=== PATIENT | female | born 1995 | race African-American/Black ===

== ENCOUNTER 2022-01-29 03:35 | Inpatient (IN) ==
[2022-01-29] MEDS ORDERED: LACTATED RINGERS 500 ML IV ONE (03:59)
[2022-01-29 04:20] LABS: Urine Appearance Clear (Clear); Urine Color Yellow (Yellow)
[2022-01-29 04:21] LABS: Bilirubin,Urine Negative (Negative); Blood, Urine Negative (Negative); Glucose,Urine (UA) Negative (Negative); Ketones,Urine Negative (Negative); Nitrite,Urine Negative (Negative); Protein,Urine Negative (Negative); Urine Specific Gravity 1.015 (1.001-1.035)
[2022-01-29 04:24] LABS: Mucus,Urine Occasional /LPF (Occasional); RBC,Urine 1 /HPF (0-4); Squamous Epithelial Cell,Urine Occasional /HPF (0-10)
[2022-01-29] MEDS ORDERED: ceFAZolin 2,000 MG/50 ML DUPLEX IV ONE (04:26)
[2022-01-29] MEDS ORDERED: TRANEXAMIC ACID 1,000 MG in SODIUM CHLORIDE 0.9% 100 ML IV PRN (04:26)
[2022-01-29] MEDS ORDERED: FAMOTIDINE 20 MG/2 ML VIAL IV ONE (04:26)
[2022-01-29] MEDS ORDERED: CARBOPROST TROMETHAMINE 250 MCG/ML AMP IM PRN (04:26)
[2022-01-29] MEDS ORDERED: miSOPROStoL 200 MCG TABLET RECTAL PRN (04:26)
[2022-01-29] MEDS ORDERED: METHYLERGONOVINE 0.2 MG/1 ML AMP IM PRN (04:26)
[2022-01-29] MEDS ORDERED: OXYTOCIN/LR 20 UNIT/1,000 ML BAG IV PRN (04:26)
[2022-01-29] MEDS ORDERED: CITRIC ACID/SODIUM CITRATE 30 ML UDCUP PO ONE (04:26)
[2022-01-29 04:40] LABS: Basophils # 0.1 10*3/uL (0.0-0.2); Basophils % 0.3 % (0.0-0.8); Eosinophils # 0.2 10*3/uL (0.0-0.87); Eosinophils % 1.7 % (0.00-10.9); Hematocrit 30.7 VOL% (35.7-47.0); Hemoglobin 9.2 GM/DL (12.0-16.0); Immature Granulocytes % 2.3 %; Immature Granulocytes Absolute 0.34 #; Lymphocytes # 2.2 10*3/uL (1.4-4.0); Lymphocytes % 14.8 % (21.3-54.2); Mean Corpuscular Volume 83.9 FL (87-102); Mean Platelet Volume 10.1 FL (9.6-12.0); Monocytes % 7.1 % (1.7-12.7); NRBC # 0.02 10*3/uL; Neutrophils % 73.8 % (38.7-73.9); Platelet Count 256 T/CUMM (130-400); Red Blood Count 3.66 MC/CUMM (3.8-5.5); Red Cell Distribution Width 14.9 % (9.3-17.3); White Blood Count 14.5 T/CUMM (4-12)
[2022-01-29 04:41] LABS: Barbiturates Screen,Urine Negative (Negative); Benzodiazepines Screen,Urine Negative (Negative); Cannabinoid Screen,Urine Negative (Negative); Opiate Screen,Urine Negative (Negative); Phencyclidine Screen,Urine Negative (Negative)
[2022-01-29] MEDS ORDERED: ONDANSETRON 4 MG/2 ML VIAL ONE (04:56)
[2022-01-29] MEDS ORDERED: DEXAMETHASONE 4 MG/1 ML VIAL ONE (04:56)
[2022-01-29] MEDS ORDERED: KETOROLAC 30 MG/1 ML VIAL ONE (04:57)
[2022-01-29] MEDS ORDERED: ACETAMINOPHEN INJ 1,000 MG/100 ML VIAL IV ONE (04:57)
[2022-01-29] MEDS ORDERED: buprenorphine HCL 0.3 MG/ML VIAL ONE (04:57)
[2022-01-29] MEDS ORDERED: OXYTOCIN/LR 20 UNIT/1,000 ML BAG IV ONE ×2 (05:00→06:22)
[2022-01-29] MEDS ORDERED: TRANEXAMIC ACID 1,000 MG/10 ML VIAL ONE (05:00)
[2022-01-29] MEDS ORDERED: METHYLERGONOVINE 0.2 MG/1 ML AMP ONE (05:00)
[2022-01-29] MEDS ORDERED: miSOPROStoL 200 MCG TABLET ONE (05:00)
[2022-01-29] MEDS ORDERED: CARBOPROST TROMETHAMINE 250 MCG/ML AMP IM ONE (05:00)
[2022-01-29] MEDS ORDERED: SODIUM CHLORIDE 0.9% 0 ML IV ONE (05:00)
[2022-01-29 05:08] LABS: Albumin 2.9 G/DL (3.4-5.0); Bilirubin,Total 0.9 MG/DL (0.20-1.00); Calcium 8.7 MG/DL (8.5-10.1); Osmolality,Calculated 273.5 MOS/KG (273-304); Potassium 3.8 MMOL/L (3.5-5.1); Total Protein 6.7 G/DL (6.4-8.2)
[2022-01-29 05:17] LABS: Rubella Antibody IgG Result Reactive (NonReactive)
[2022-01-29] MEDS ORDERED: PHENYLEPHRINE 1 MG/10 ML SYRINGE IV ONE (05:21)
[2022-01-29] MEDS ORDERED: ePHEDrine 50 MG/ML VIAL ONE (05:24)
[2022-01-29 05:36] LABS: HIV Antigen/Antibody Result Nonreactive (Nonreactive); Hepatitis B Surface Ag Quant < 0.10 Index; Hepatitis B Surface Ag Result Non-Reactive (NonReactive)
[2022-01-29 06:12] LABS: Bacteria,Urine Occasional /HPF (Few); Bilirubin,Urine Negative (Negative); Blood, Urine Negative (Negative); Glucose,Urine (UA) Negative (Negative); Ketones,Urine Negative (Negative); Nitrite,Urine Negative (Negative); Protein,Urine Negative (Negative); RBC,Urine <1 /HPF (0-4); Squamous Epithelial Cell,Urine Occasional /HPF (0-10); Urine Appearance Clear (Clear); Urine Color Yellow (Yellow); Urine Specific Gravity 1.015 (1.001-1.035)
[2022-01-29 06:19] LABS: Cord Venous Blood HCO3 22.1 MMOL/L; Cord Venous Blood PCO2 34.9 MMHG; Cord Venous Blood PO2 32.4
[2022-01-29] MEDS ORDERED: ACETAMINOPHEN 325 MG TABLET PO PRN (06:22)
[2022-01-29] MEDS ORDERED: IBUPROFEN 800 MG TABLET PO PRN (06:22)
[2022-01-29] MEDS ORDERED: ONDANSETRON 4 MG/2 ML VIAL IV PRN (06:22)
[2022-01-29] MEDS ORDERED: MAGNESIUM HYDROXIDE SUSP 30 ML UDCUP PO PRN (06:22)
[2022-01-29] MEDS ORDERED: LACTATED RINGERS 1,000 ML IV SCH (06:30)
[2022-01-29] MEDS ORDERED: RHO(D) IMMUNE GLOBULIN 300 MCG SYRINGE IM ONE (06:30)
[2022-01-29] MEDS ORDERED: ACETAMINOPHEN 500 MG TABLET PO SCH (08:30)
[2022-01-29] MEDS: MULTIVITAMIN (PRENATAL) TABLET PO SCH (11:25)
[2022-01-29] MEDS ORDERED: ACETAMINOPHEN 500 MG TABLET PO PRN (11:45)
[2022-01-29] MEDS: KETOROLAC 30 MG/1 ML VIAL IV SCH ×2 (13:38→21:15)
[2022-01-29] MEDS: DOCUSATE SODIUM 100 MG CAPSULE PO SCH ×2 (14:42→21:14)
[2022-01-29] MEDS: ACETAMINOPHEN 500 MG TABLET PO SCH ×2 (14:43→21:14)
[2022-01-29] MEDS: SIMETHICONE CHEW 80 MG TABLET PO PRN (21:14)
[2022-01-30] MEDS: ACETAMINOPHEN 500 MG TABLET PO SCH ×2 (03:49→09:53)
[2022-01-30] MEDS ORDERED: KETOROLAC 30 MG/1 ML VIAL IV SCH (04:00)
[2022-01-30 04:55] LABS: Basophils % 0.2 % (0.0-0.8); Eosinophils # 0.1 10*3/uL (0.0-0.87); Eosinophils % 0.3 % (0.00-10.9); Hematocrit 23.5 VOL% (35.7-47.0); Hemoglobin 7.1 GM/DL (12.0-16.0); Immature Granulocytes % 1.2 %; Immature Granulocytes Absolute 0.26 #; Lymphocytes # 2.6 10*3/uL (1.4-4.0); Lymphocytes % 12.2 % (21.3-54.2); Mean Corpuscular HGB Conc 30.2 GM/DL (32-36); Mean Corpuscular Volume 84.2 FL (87-102); Monocytes # 1.9 10*3/uL (0.11-0.8); Monocytes % 8.9 % (1.7-12.7); NRBC # 0.02 10*3/uL; Neutrophils % 77.2 % (38.7-73.9); Platelet Count 279 T/CUMM (130-400); Red Blood Count 2.79 MC/CUMM (3.8-5.5); White Blood Count 21.6 T/CUMM (4-12)
[2022-01-30 05:26] LABS: Band Neutrophils 1 % (0-10); Lymphocytes 6 % (20-55); Platelet Estimate Normal; Total Cells Counted 100
[2022-01-30] MEDS: MULTIVITAMIN (PRENATAL) TABLET PO SCH (09:15)
[2022-01-30] MEDS: DOCUSATE SODIUM 100 MG CAPSULE PO SCH ×2 (09:15→21:31)
[2022-01-30 11:46] LABS: Basophils % 0.2 % (0.0-0.8); Eosinophils # 0.1 10*3/uL (0.0-0.87); Eosinophils % 0.6 % (0.00-10.9); Hemoglobin 7.1 GM/DL (12.0-16.0); Immature Granulocytes % 1.3 %; Immature Granulocytes Absolute 0.22 #; Lymphocytes # 2.8 10*3/uL (1.4-4.0); Lymphocytes % 16.3 % (21.3-54.2); Mean Corpuscular HGB Conc 30.9 GM/DL (32-36); Mean Corpuscular Volume 84.2 FL (87-102); Mean Platelet Volume 9.6 FL (9.6-12.0); Monocytes # 1.2 10*3/uL (0.11-0.8); Monocytes % 7.1 % (1.7-12.7); Neutrophils % 74.5 % (38.7-73.9); Platelet Count 264 T/CUMM (130-400); Red Blood Count 2.73 MC/CUMM (3.8-5.5); Red Cell Distribution Width 15.1 % (9.3-17.3); White Blood Count 17.3 T/CUMM (4-12)
[2022-01-30] MEDS: AMOXICILLIN/CLAV 875 MG TABLET PO SCH ×2 (13:23→21:31)
[2022-01-30] MEDS: FERROUS SULFATE 325 MG TABLET PO SCH ×2 (16:06→21:31)
[2022-01-30] MEDS: ASCORBIC ACID 500 MG TABLET PO SCH ×2 (16:07→21:31)
[2022-01-30] MEDS: SIMETHICONE CHEW 80 MG TABLET PO PRN (21:31)
[2022-01-31] MEDS: ASCORBIC ACID 500 MG TABLET PO SCH ×3 (09:27→21:48)
[2022-01-31] MEDS: FERROUS SULFATE 325 MG TABLET PO SCH ×3 (09:27→21:49)
[2022-01-31] MEDS: MULTIVITAMIN (PRENATAL) TABLET PO SCH (09:27)
[2022-01-31] MEDS: AMOXICILLIN/CLAV 875 MG TABLET PO SCH ×2 (09:27→21:49)
[2022-01-31] MEDS: DOCUSATE SODIUM 100 MG CAPSULE PO SCH ×2 (09:28→21:48)
[2022-01-31] MEDS ORDERED: WITCH HAZEL PADS 100/JAR TOP PRN (10:12)
[2022-01-31] MEDS ORDERED: HYDROCORTISONE 2.5% RECTAL CREAM 30 GM TUBE TOP PRN (10:15)
[2022-01-31 11:35] LABS: Basophils % 0.2 % (0.0-0.8); Eosinophils # 0.3 10*3/uL (0.0-0.87); Eosinophils % 2.1 % (0.00-10.9); Hematocrit 24.8 VOL% (35.7-47.0); Hemoglobin 7.2 GM/DL (12.0-16.0); Immature Granulocytes % 2.6 %; Immature Granulocytes Absolute 0.38 #; Lymphocytes # 2.3 10*3/uL (1.4-4.0); Lymphocytes % 15.5 % (21.3-54.2); Mean Corpuscular Volume 86.4 FL (87-102); Mean Platelet Volume 9.1 FL (9.6-12.0); Monocytes % 6.7 % (1.7-12.7); NRBC # 0.03 10*3/uL; Neutrophils % 72.9 % (38.7-73.9); Platelet Count 249 T/CUMM (130-400); Red Blood Count 2.87 MC/CUMM (3.8-5.5); Red Cell Distribution Width 15.3 % (9.3-17.3); White Blood Count 14.6 T/CUMM (4-12)
[2022-01-31] MEDS ORDERED: IBUPROFEN 800 MG TABLET PO PRN (22:08)
[2022-02-01 07:41] VITALS: BP 126/64
[2022-02-01] MEDS: FERROUS SULFATE 325 MG TABLET PO SCH (08:58)
[2022-02-01] MEDS: AMOXICILLIN/CLAV 875 MG TABLET PO SCH (08:58)
[2022-02-01] MEDS: MULTIVITAMIN (PRENATAL) TABLET PO SCH (08:58)
[2022-02-01] MEDS: ASCORBIC ACID 500 MG TABLET PO SCH (08:58)
[2022-02-01] MEDS: DOCUSATE SODIUM 100 MG CAPSULE PO SCH (08:58)
== END 2022-02-01 13:25 | disposition home or self-care (01) | DRG 786 ==
LOC: N.LDOUT 03:35 → N.LD 03:37 → N.OB 09:05
PROVIDERS: ADMIT Obstetrics & Gynecology; ATTEND Obstetrics & Gynecology
PROC: LDCSECT (ICD-10-PCS; 2022-01-29 04:35)